=== PATIENT | male | born 1995 | race African-American/Black ===

== ENCOUNTER 2019-03-07 08:35 | Emergency (ER) | payer MEDICAID ==
[~2019-03-07] VITALS: Ht 188 cm; Wt 77.1 kg
--- NOTE | 2019-03-07 08:49 | NUR ---
CAME IN FOR PSYCH EVAL, PATIENT STATES "I AM HEARING VOICES, IT'S LIKE A BUZZ AT THE BACK OF MY EAR", -SI/HI. ON ROOM AIR, BREATHING EVENLY AND UNLABORED. SITTER AT BEDSIDE, DENIES ANY PAIN AT THIS TIME. WILL CONTINUE TO MONITOR ACCORDINGLY.
[2019-03-07] MEDS ORDERED: LORAZEPAM 1 MG TABLET ONE (08:59)
[2019-03-07] MEDS ORDERED: LORAZEPAM 1 MG TABLET PO ONE (09:00)
--- NOTE | 2019-03-07 09:13 | NUR ---
PATIENT STATED "I HAD ENOUGH OF THIS BULLSHIT, AND I DON'T NEED TO STAY HERE IF I DON'T HAVE TO." PATIENT REFUSED TO GO BACK TO BED. PATIENT IS STABLE AND NON-SUICIDAL.
[2019-03-07 09:15] VITALS: BP 145/99
--- NOTE | 2019-03-07 09:19 | NUR ---
Patient eloped from facility. ER MD notified.
== END 2019-03-07 09:20 | disposition left against medical advice (07) ==
LOC: ER 08:40
DX: F15.10 Other stimulant abuse, uncomplicated (principal); F41.9 Anxiety disorder, unspecified; F20.0 Paranoid schizophrenia

== ENCOUNTER 2019-09-04 20:05 | Emergency (ER) | payer MEDICAID, OTHER ==
[~2019-09-04] VITALS: Ht 190.5 cm; Wt 79.4 kg
[2019-09-04 20:08] VITALS: BP 147/95
--- NOTE | 2019-09-04 20:19 | NUR ---
BIBRA FROM STREET. TO ER BED 6. AAOX4. NOT IN RESP DISTRESS. AMBULATORY ON STEADY GAIT BUT W/ A LIMP. C/O BILAT FOOT PAIN 1 MONTH PROGRESSIVELY GETTING WORST IN THE PAST WEEK. NOTED AN INSECT BITE ON L DORSAL ASPECT OF FOOT AND R MARADIAGA. PT ALSO STATES THAT PAIN IN ON THE BOTTOM OF THE BOTH FOOT AND BOTH GREAT TOES. PT ALSO ADMIT TO SMOKING METH EARLIER TO MASK THE PAIN STATED BY THE PT. MD WAS AT BEDSIDE FOR EVAL. URINE COLLECTED. CANCELLED LAB DRAW.
--- NOTE | 2019-09-04 20:38 | NUR ---
Patient discharged to home in stable condition. Written and verbal after care instructions given. Patient verbalizes understanding of instruction. Pt ambulatory with a steady gait. Pt signed homeless waiver. provided with couple new socks and food provided.
[2019-09-04 20:40] LABS: APPEARANCE,URINE Clear (CLEAR); BILIRUBIN,URINE Negative (NEGATIVE); BLOOD, URINE Negative Ery/uL (NEGATIVE); COLOR,URINE Yellow (YELLOW); KETONES,URINE Trace (NEGATIVE); LEUKOCYTE ESTERASE ,URINE Negative (NEGATIVE); NITRITE, URINE Negative (NEGATIVE); PH,URINE 6.5 (5.0-8.0); PROTEIN,URINE Negative (NEGATIVE); UGLUCOSE Negative (NEGATIVE)
[2019-09-04 20:48] LABS: BACTERIA,URINE Few /HPF (None Seen); RBC,URINE 0-2 /HPF (0-2); SQUAMOUS EPITHELIAL CELL,UR Few /HPF (None Seen); WBC,URINE 0-2 /HPF (0-3)
[2019-09-04 20:49] LABS: CALCIUM OXALATE CRYSTALS,UR Few /HPF (None Seen)
== END 2019-09-04 20:42 | disposition home or self-care (01) ==
LOC: ER 20:10
DX: S90.822A Blister (nonthermal), left foot, initial encounter (principal); S90.821A Blister (nonthermal), right foot, initial encounter; F15.10 Other stimulant abuse, uncomplicated; F41.9 Anxiety disorder, unspecified; F20.9 Schizophrenia, unspecified; X58.XXXA Exposure to other specified factors, initial encounter; Y93.89 Activity, other specified; Y92.89 Other specified places as the place of occurrence of the external cause; Y99.8 Other external cause status
CPT/HCPCS: 80305; 81000-TC